=== PATIENT | male | born 1955 | race Caucasian/White ===

== ENCOUNTER 2020-06-03 12:55 | Day surgery (SDC) | payer OTHER, SELFPAY ==
[2020-05-28 18:52] VITALS: BMI 27.6
--- NOTE | 2020-05-29 14:28 | HO.ANESPROP2 ---
Documented by User: Leighann Gutierrez 05/29/20 14:31 HPI - Anesthesia Eval Consult details Narrative: 65yo M for colonoscopy [facility] Past Medical History Medical History Colonoscopy planned Diarrhea Head trauma HTN (hypertension) Surgical History Surgical History History of craniotomy Hx of tonsillectomy Social History Social History Smoking Status: Never smoker Use of substances other than those prescribed or required for medical reasons: No Advance Directives: No (UNKNOWN) Advance Directives Information Provided: No Advance Directives on File: No Recently lost weight without trying: No Meds Allergies Allergy/AdvReac Type Severity Reaction Status Date / Time bees Allergy Unknown Uncoded 04/04/19 00:00 Home Medications Medication Instructions Recorded Confirmed Type irbesartan-hydrochlorothiazide 1 tab PO DAILY 05/28/20 05/28/20 History Exam Exam Date and Time: May 29, 2020 1428 Height,Weight and Vital Signs: Height 6 ft 2 in Weight 97.522 kg Pertinent Lab Results Pertinent Lab Results: Laboratory Tests 05/10/20 05/15/20 09:40 15:11 WBC 6.6 Hgb 15.5 Hct 45.2 Plt Count 254 Sodium 140 Potassium 3.9 Chloride 106 BUN 19 H Creatinine 0.88 Assessment and Plan Assessment Anesthesia Assessment: Chart Reviewed Documented by User: Jh Dc 06/03/20 14:18 [facility] Past Medical History Medical History Colonoscopy planned Diarrhea Head trauma HTN (hypertension) Surgical History Surgical History History of craniotomy Hx of tonsillectomy Social History Social History Smoking Status: Never smoker Use of substances other than those prescribed or required for medical reasons: No Advance Directives: No (UNKNOWN) Advance Directives Information Provided: No Advance Directives on File: No Recently lost weight without trying: No Meds Allergies Allergy/AdvReac Type Severity Reaction Status Date / Time bees Allergy Unknown Uncoded 04/04/19 00:00 Home Medications Medication Instructions Recorded Confirmed Type irbesartan-hydrochlorothiazide 1 tab PO DAILY 05/28/20 05/28/20 History Exam Airway Mallampati Class: II TM Dist: >3cm Neck ROM: Full Heart: RRR Assessment and Plan Assessment Anesthesia Assessment: Anesthesia Plan Discussed Final Anesthetic Review NPO: Yes ASA Class: II Final Preanesthetic Review: Consent Obtained/Reviewed Anesthetic Plan Anesthetic Plan: MAC:
[2020-06-03 13:36] VITALS: BP 144/91; PULSE 66; RESP 18; TEMP 37.1; O2SAT 98
[2020-06-03] MEDS: Lactated Ringers 1,000 ML 100 ML IVCONT (13:59)
[2020-06-03 15:20] VITALS: BP 115/78; PULSE 57; RESP 16; TEMP 36.4; O2SAT 94
--- NOTE | 2020-06-03 15:23 | PM.OP ---
Brief Operative Note Date of procedure: 06/03/20 Pre-op diagnosis: Change in Bowel habits, Diarrhea Post-op diagnosis: other (Diverticulosis, R/O microscopic colitis) Procedure: Colonoscopy to cecum and TI with biopsies Surgeon: Cameron Waters Anesthesia: MAC Estimated blood loss (mL): 5.0 Pathology: other (A. Terminal ileum B. Ascending colon C. Descending colon) Condition: stable Disposition: PACU
[2020-06-03 15:34] VITALS: BP 115/78; PULSE 53; RESP 15; TEMP 36.4; O2SAT 99
--- NOTE | 2020-06-03 19:43 | OP_ITS ---
SURGEON: Cameron Waters MD INDICATIONS: The patient presents for evaluation of change in bowel habits and diarrhea. Full consent has been obtained from him for this, including risks of bleeding and perforation. PREOPERATIVE DIAGNOSIS: POSTOPERATIVE DIAGNOSIS: PROCEDURE PERFORMED: Colonoscopy to cecum and terminal ileum with biopsies. ESTIMATED BLOOD LOSS: COMPLICATIONS: ANESTHESIA: Monitored anesthesia care. ASSISTANTS: SPECIMENS: PREOPERATIVE DIAGNOSES: Change in bowel habits and diarrhea. POSTOPERATIVE DIAGNOSES: Change in bowel habits and diarrhea, rule out microscopic colitis, diverticulosis, and internal hemorrhoids. DESCRIPTION OF PROCEDURE: The patient was placed in the left lateral decubitus position. The digital rectal exam revealed no abnormalities. The Olympus video pediatric colonoscope was entered into the rectum and advanced easily to the cecum. Once in the cecum, I did identify normal-appearing cecal pouch with appendiceal orifice and a normal-appearing ileocecal valve. The terminal ileum was cannulated and appeared normal. Biopsies were obtained from it. There was no evidence of any Crohn disease. The scope was withdrawn back in the colon. The entire cecum and ileocecal valve appeared normal. The scope was then slowly withdrawn assessing all mucosal surfaces carefully. Preparation was excellent. I did not visualize any sign of polyps, colitis, nor angiodysplasia. There was a mild amount of sigmoid diverticulosis. In the rectum, scope was retroflexed visualizing minimal internal hemorrhoids, but no other pathology. The rectal mucosa appeared normal. The scope was straightened. Of note, I did obtain biopsies in the ascending and descending colon to rule out microscopic colitis. The scope was then withdrawn from the patient. He tolerated the procedure well and was returned to recovery area in stable condition. IMPRESSION: 1. Diverticulosis. 2. Internal hemorrhoids. 3. Rule out microscopic colitis. PLAN: The results of the biopsies will be checked. At this point, he advised me that his bowel movements are definitely much better than when he first got ill back over the summer. He is now having about 3 soft bowel movements per day, which is still not his baseline, but nonetheless much improved. Recent blood work including celiac disease and laboratories were negative. At this point, I have recommended to simply observe things. As time passes, this may completely return to normal as I do suspect he had some postinfectious irritable bowel type symptoms. The results of the biopsy will be checked. If things are stable, I advised him to see me in several months for a followup visit, but to call sooner on a p.r.n. basis. This has been discussed with his . MD YASMEEN Ladd/MILTON / [id number]
== END 2020-06-03 16:30 | disposition home or self-care (01) ==
PROVIDERS: PCP Nurse Practitioner Family; Visit Provider Internal Medicine
PROC: 0DJD8ZZ Inspection of Lower Intestinal Tract, Via Natural or Artificial Opening Endoscopic (ICD-10-PCS; CPT 45378; principal; 2020-06-03 14:10)
DX: R19.4 Change in bowel habit (principal); R19.7 Diarrhea, unspecified; Z83.71 Family history of colonic polyps; K57.30 Diverticulosis of large intestine without perforation or abscess without bleeding; K64.8 Other hemorrhoids; I10 Essential (primary) hypertension; L40.9 Psoriasis, unspecified; Z79.899 Other long term (current) drug therapy; Z87.891 Personal history of nicotine dependence
CPT/HCPCS: 45380; 88305

== ENCOUNTER 2022-04-01 11:44 | Outpatient (REF) | payer MEDICARE, SELFPAY ==
[2022-04-01 13:41] LABS: C Reactive Protein 0.14 mg/dL (< or = 0.50); Uric Acid 5.3 mg/dL (3.4-7.0)
[2022-04-01 13:58] LABS: Erythrocyte Sedimentation Rate 5 MM/HR (0-15)
[2022-04-02 21:10] LABS: Lyme Abs Screen <0.90 index
== END 2022-04-01 11:45 | disposition home or self-care (01) ==
LOC: HO.10HDL 11:44
PROVIDERS: Visit Provider Internal Medicine Rheumatology
DX: M17.0 Bilateral primary osteoarthritis of knee (principal); L40.9 Psoriasis, unspecified; Z79.899 Other long term (current) drug therapy
CPT/HCPCS: 36415; 84550; 85652; 86140; 86617; 86618; 99212